=== PATIENT | female | born 1960 | race Caucasian/White ===

== ENCOUNTER 2020-04-17 11:28 | Emergency (ER) | payer BC ==
[2020-04-17 11:38] VITALS: BP 129/78; PULSE 71
[2020-04-17] MEDS ORDERED: Sodium Chloride 0.9% 1,000 ML IV ONE (11:42)
[2020-04-17] MEDS ORDERED: Sodium Chloride 0.9% 10 ML Syringe FLUSH PRN (11:42)
[2020-04-17] MEDS ORDERED: Ketorolac 30 MG/ML SDV IVPUSH ONE (12:08)
[2020-04-17] MEDS ORDERED: diphenhydrAMINE 50 MG/ML SDV IVPUSH ONE (12:08)
[2020-04-17] MEDS ORDERED: Ondansetron 4 MG/2 ML SDV IVPUSH ONE (12:08)
--- NOTE | 2020-04-17 12:08 | EDM.PDOC ---
ED HPI GENERAL MEDICAL PROBLEM - General Chief Complaint: Headache Stated Complaint: MIGRAINE Time Seen by Provider: 04/17/20 11:50 Source of Information: Reports: Patient History Limitations: Reports: No Limitations - History of Present Illness INITIAL COMMENTS - FREE TEXT/NARRATIVE: 59 YO WF PRESENTS TO ER COMPLAINING OF HEADACHE WHICH BEGAN THIS AM AFTER WAKING UP. PT REPORTS SHE HAD SOME DENTAL WORK DONE YESTERDAY AND WAS SENT HOME ON HYDROCODONE. PT REPORTS SHE HAD BEEN IN BED MOST OF THE DAY YESTERDAY AFTER PROCEDURE. PT REPORTS SHE HAD TROUBLE SLEEPING LAST NIGHT AND SHE BELIEVES THE LACK OF SLEEP AND RECENT DENTAL PROCEDURE MAY HAVE TRIGGERED A MIGRAINE HEADACHE. PT DENIES FEVER/CHILLS, NO COUGH/CONGESTION, NO CHEST PAIN OR SHORTNESS OF BREATH. PT REPORTS 4 EPISODES OF VOMITING SINCE EARLIER THIS AM. PT DENIES DIARRHEA OR ABDOMINAL PAIN. PT REPORTS HEADACHE IS OCCIPITAL WHICH IS HOW HER TYPICAL HEADACHES BEGIN. PT DENIES HEAD TRAUMA OR NECK PAIN AT THIS TIME. Onset: Today Duration: Hour(s): (3) Location: Reports: Head Quality: Reports: Ache Severity: Moderate Improves with: Reports: None Worsens with: Reports: None Associated Symptoms: Reports: Headaches, Nausea/Vomiting Headache Pain Score (Numeric/FACES): 8 - Related Data Allergies Allergy/AdvReac Type Severity Reaction Status Date / Time celery Allergy Anaphylactic Verified 04/17/20 11:39 Shock Penicillins Allergy Cannot Verified 04/17/20 11:39 Remember soybean Allergy Anaphylactic Verified 04/17/20 11:39 Shock Home Meds: Home Meds Clindamycin HCl 150 mg PO QID 04/17/20 [History] Hydrocodone/Acetaminophen [Hydrocodone-Acetamin 5-325 mg] 1 - 2 tab PO Q6H PRN 04/17/20 [History] Ondansetron [Zofran ODT] 4 mg PO Q6H PRN #15 tab.dis 04/17/20 [Rx] Past Medical History - Past Health History Medical/Surgical History: Denies Medical/Surgical History [employer] History: Reports: Dysfunctional Uterine Bleeding, Hematologic History: Reports: Anemia, Iron Deficiency - Past Surgical History GI Surgical History: Reports: Appendectomy Social & Family History - Caffeine Use Caffeine Use: Reports: Coffee ED ROS GENERAL - Review of Systems Review Of Systems: See Below Constitutional: Reports: No Symptoms HEENT: Reports: No Symptoms Respiratory: Reports: No Symptoms Cardiovascular: Reports: No Symptoms Endocrine: Reports: No Symptoms GI/Abdominal: Reports: Nausea, Vomiting : Reports: No Symptoms Musculoskeletal: Reports: No Symptoms Skin: Reports: No Symptoms Neurological: Reports: Headache Psychiatric: Reports: No Symptoms Hematologic/Lymphatic: Reports: No Symptoms Immunologic: Reports: No Symptoms - Physical Exam Exam: See Below Exam Limited By: No Limitations General Appearance: Alert, WD/WN, No Apparent Distress Eye Exam: Bilateral Eye: EOMI, PERRL Nose: Normal Inspection, Normal Mucosa, No Blood Throat/Mouth: Normal Inspection, Normal Lips, Normal Teeth, Normal Gums, Normal Oropharynx, Normal Voice, No Airway Compromise Head Exam: Atraumatic, Normocephalic Neck: Normal Inspection, Supple, Non-Tender, Full Range of Motion Respiratory/Chest: No Respiratory Distress, Lungs Clear, Normal Breath Sounds, No Accessory Muscle Use, Chest Non-Tender Cardiovascular: Normal Peripheral Pulses, Regular Rate, Rhythm, No Edema, No Gallop, No JVD, No Murmur, No Rub GI/Abdominal: Normal Bowel Sounds, Soft, Non-Tender, No Organomegaly, No Distention, No Abnormal Bruit, No Mass Neuro Exam (Abbreviated): Alert, Oriented, CN II-XII Intact, Normal Cognition, Normal Gait, Normal Reflexes, No Motor/Sensory Deficits Course - Vital Signs Last Recorded V/S: Last Vital Signs Temp 36.4 C 04/17/20 11:34 Pulse 71 04/17/20 11:34 Resp 16 04/17/20 11:34 BP 129/78 04/17/20 11:34 Pulse Ox 96 04/17/20 11:34 - Orders/Labs/Meds Orders: Active Orders 24 hr Category Date Time Status Peripheral IV Care [RC] . DIRECTED Care 04/17/20 11:42 Active Sodium Chloride 0.9% [Saline Flush] Med 04/17/20 11:42 Active 10 ml FLUSH Q8HR PRN Peripheral IV Insertion Adult [OM.PC] Routine Oth 04/17/20 11:42 Ordered Medication Orders Sodium Chloride (Saline Flush) 10 ml FLUSH Q8HR PRN PRN Reason: keep vein open Meds: Medications Generic Name Dose Route Start Last Admin Trade Name Freq PRN Reason Stop Dose Admin Sodium Chloride 10 ml 04/17/20 11:42 Saline Flush FLUSH Q8HR PRN keep vein open Discontinued Medications Generic Name Dose Route Start Last Admin Trade Name José PRN Reason Stop Dose Admin Diphenhydramine HCl 50 mg 04/17/20 12:08 04/17/20 12:23 Benadryl IVPUSH 04/17/20 12:09 50 mg ONETIME ONE Administration Sodium Chloride 1,000 mls @ 999 mls/hr 04/17/20 11:42 04/17/20 12:16 Normal Saline IV 04/17/20 12:42 999 mls/hr .BOLUS ONE Administration Ketorolac Tromethamine 30 mg 04/17/20 12:08 04/17/20 12:20 Toradol IVPUSH 04/17/20 12:09 30 mg ONETIME ONE Administration Ondansetron HCl 4 mg 04/17/20 12:08 04/17/20 12:16 Zofran IVPUSH 04/17/20 12:09 4 mg ONETIME ONE Administration - Re-Assessments/Exams Free Text/Narrative Re-Assessment/Exam: 04/17/20 13:15 PT REPORTS HEADACHE AND N/V RESOLVED. PT STATES SHE FEELS MUCH BETTER AND WOULD LIKE TO GO HOME. Departure - Departure Time of Disposition: 13:17 Disposition: Home, Self-Care 01 Condition: Good Clinical Impression: Headache Qualifiers: Headache type: unspecified Headache chronicity pattern: acute headache Vomiting Qualifiers: Vomiting type: unspecified Vomiting Intractability: non-intractable Nausea presence: with nausea Qualified Code(s): R11.2 - Nausea with vomiting, unspecified - Discharge Information Prescriptions: Ondansetron [Zofran ODT] 4 mg PO Q6H PRN #15 tab.dis PRN Reason: Vomiting Instructions: Vomiting, Adult, General Headache Without Cause Referrals: Jeni Ragsdale MD [Primary Care Provider] - Forms: ED Department Discharge Additional Instructions: 1. DISCHARGE HOME 2. ZOFRAN 4MG ODT Q6-8 HOURS PRN VOMITING 3. FOLLOW UP WITH DENTIST SCHEDULED 4. RETURN TO ER FOR WORSENING SYMPTOMS 5. FOLLOW UP WITH PCP NEEDED Sepsis Event Note (ED) - Evaluation Sepsis Screening Result: No Definite Risk - Focused Exam Vital Signs: Vital Signs Temp Pulse Resp BP Pulse Ox 04/17/20 11:34 36.4 C 71 16 129/78 96 - My Orders Last 24 Hours: My Active Orders 04/17/20 11:42 Peripheral IV Care [RC] . DIRECTED Sodium Chloride 0.9% [Saline Flush] 10 ml FLUSH Q8HR PRN Peripheral IV Insertion Adult [OM.PC] Routine - Assessment/Plan Last 24 Hours: My Active Orders 04/17/20 11:42 Peripheral IV Care [RC] . DIRECTED Sodium Chloride 0.9% [Saline Flush] 10 ml FLUSH Q8HR PRN Peripheral IV Insertion Adult [OM.PC] Routine Assessment:: 1. HEADACHE- RESOLVED Plan: 1. DISCHARGE HOME 2. ZOFRAN 4MG ODT Q6-8 HOURS PRN VOMITING 3. FOLLOW UP WITH DENTIST SCHEDULED 4. RETURN TO ER FOR WORSENING SYMPTOMS 5. FOLLOW UP WITH PCP NEEDED
== END 2020-04-17 13:35 | disposition home or self-care (01) ==
LOC: KA.ED 11:28
DX: R51 Headache (principal); R11.2 Nausea with vomiting, unspecified; Z88.0 Allergy status to penicillin; Z91.018 Allergy to other foods
CPT/HCPCS: 96361; 96374; 96375; 99283; 99283-25; J1200; J1885; J2405; J7030

== ENCOUNTER 2022-08-27 13:37 | Emergency (ER) | payer BC ==
[2022-08-27] MEDS ORDERED: Sodium Chloride 0.9% 10 ML Syringe FLUSH PRN (13:53)
[2022-08-27] MEDS ORDERED: Sodium Chloride 0.9% 1,000 ML ONE (13:55)
[2022-08-27] MEDS ORDERED: Sodium Chloride 0.9% 1,000 ML IV ONE ×2 (14:09→14:10)
[2022-08-27] MEDS ORDERED: Ondansetron 4 MG/2 ML SDV IVPUSH ONE (14:09)
[2022-08-27] MEDS ORDERED: Ketorolac 30 MG/ML SDV IVPUSH ONE (14:09)
[2022-08-27] MEDS ORDERED: diphenhydrAMINE 50 MG/ML SDV IVPUSH ONE (14:09)
[2022-08-27 15:49] VITALS: BP 126/77; PULSE 70
== END 2022-08-27 16:20 | disposition home or self-care (01) ==
LOC: KA.ED 13:37
DX: G44.209 Tension-type headache, unspecified, not intractable (principal); N39.0 Urinary tract infection, site not specified; Z88.0 Allergy status to penicillin; Z91.018 Allergy to other foods
CPT/HCPCS: 81001; 87086; 87088; 87186; 96361; 96374; 96375; 99284; J1200; J1885; J2405; J7030

== ENCOUNTER 2023-06-27 11:54 | Emergency (ER) | payer BC ==
[2023-06-27] MEDS ORDERED: Sodium Chloride 0.9% 10 ML Syringe FLUSH PRN (12:10)
[2023-06-27] MEDS: Ketorolac 30 MG/ML SDV IVPUSH ONE (12:19)
[2023-06-27] MEDS: diphenhydrAMINE 50 MG/ML SDV IVPUSH ONE (12:19)
[2023-06-27] MEDS: Ondansetron 4 MG/2 ML SDV IVPUSH ONE (12:19)
[2023-06-27] MEDS: Sodium Chloride 0.9% 1,000 ML IV ONE (12:19)
[2023-06-27 12:31] VITALS: BP 149/91; PULSE 91
== END 2023-06-27 13:35 | disposition home or self-care (01) ==
LOC: KA.ED 11:54
DX: G44.209 Tension-type headache, unspecified, not intractable (principal); M62.830 Muscle spasm of back
CPT/HCPCS: 96361; 96374; 96375; 99283; 99283-25; J1200; J1885; J2405; J7030